=== PATIENT | female | born 1990 | race Caucasian/White ===

== ENCOUNTER → 2017-05-13 | Outpatient (CLI) | payer MEDICAID | LOC: LABWHC1 12:39 | PROVIDERS: ATTEND Internal Medicine Endocrinology, Diabetes & Metabolism | DX: E04.2 Nontoxic multinodular goiter (principal) | CPT/HCPCS: 36415; 84436; 84443; 84480 ==

== ENCOUNTER → 2017-06-06 | Outpatient (CLI) | payer MEDICAID | END | disposition home or self-care (01) | LOC: LABWHC1 12:35 | PROVIDERS: ATTEND Internal Medicine Endocrinology, Diabetes & Metabolism | DX: E04.1 Nontoxic single thyroid nodule (principal); R94.6 Abnormal results of thyroid function studies | CPT/HCPCS: 36415; 84439; 84443; 84445; 84481 ==

== ENCOUNTER → 2017-07-03 | Outpatient (CLI) | payer MEDICAID | END | disposition home or self-care (01) | LOC: LABWHC1 12:10 | PROVIDERS: ATTEND Internal Medicine Endocrinology, Diabetes & Metabolism | DX: E04.2 Nontoxic multinodular goiter (principal) | CPT/HCPCS: 36415; 84436; 84443; 84480 ==

== ENCOUNTER → 2017-07-17 | Outpatient (CLI) | payer MEDICAID | END | disposition home or self-care (01) | LOC: LABWHC1 10:22 | PROVIDERS: ATTEND Internal Medicine Endocrinology, Diabetes & Metabolism | DX: E04.2 Nontoxic multinodular goiter (principal) | CPT/HCPCS: 36415; 84436; 84443; 84480 ==

== ENCOUNTER 2017-11-06 06:30 | Inpatient (IN) | payer BC ==
[2017-11-06] MEDS ORDERED: LIDOCAINE 1% (PF) 10 MG/ML (30 ML SDV) SQ PRN (06:55)
[2017-11-06] MEDS ORDERED: TERBUTALINE 1 MG/ML VIAL SQ PRN (06:55)
[2017-11-06] MEDS ORDERED: METHYLERGONOVINE 0.2 MG/ML 1 ML AMP IM PRN (06:55)
[2017-11-06] MEDS ORDERED: OXYTOCIN 10 UNIT/ML 1 ML VIAL IM PRN (06:55)
[2017-11-06] MEDS ORDERED: CARBOPROST TROMETHAMINE 250 MCG/ML 1 ML AMP IM PRN (06:55)
[2017-11-06 07:15] LABS: Basophils % (A) 0 %; Eosinophils # (A) 0.1 k/uL (0-0.7); Eosinophils % (A) 1 %; HGB 13.1 gm/dL (11.4-16.0); Lymphocytes # (A) 2.2 k/uL (1.0-4.8); Lymphocytes % (A) 23 %; MCH 28.3 pg (25.0-35.0); MCHC 32.7 g/dL (31.0-37.0); MCV 86.4 fL (80.0-100.0); Mean Platelet Volume 8.1; Monocytes # (A) 0.6 k/uL (0-1.0); Monocytes % (A) 6 %; Neutrophils # (A) 6.4 k/uL (1.3-7.7); Neutrophils % (A) 66 %; Platelet Count 286 k/uL (150-450); RBC 4.63 m/uL (3.80-5.40); RDW 14.6 % (11.5-15.5); WBC 9.7 k/uL (3.8-10.6)
[2017-11-06 07:18] VITALS: BMI 35.7
[2017-11-06] MEDS: LACTATED RINGERS 1,000 ML IV SCH ×2 (07:20→14:23)
[2017-11-06] MEDS: OXYTOCIN 20 UNITS/1000 ML NS 1,000 ML IV SCH ×2 (07:35→21:20)
[2017-11-06] MEDS ORDERED: BUTORPHANOL 1 MG/ML 1 ML VIAL IV PRN (08:45)
--- NOTE | 2017-11-06 08:49 | P.HPOB ---
History of Present Illness H&P Date: 11/06/17 Chief Complaint: 40-0/7 weeks, induction of labor The patient is a 27-year-old 1 para 0 admitted at 40-0/7 weeks as established by last menstrual period and confirmed by a week ultrasound. She is admitted for induction of labor with favorable cervix and all signs reassuring. Her has been uncomplicated and group B strep status is negative. Obstetrical history: [place] 1 para 0 with current statistics listed above. EDC of 11/06/2017 was established by last menstrual period and confirmed by 8 week ultrasound. Laboratory workup demonstrates a blood type of A+ with a negative antibody screen. Rubella status is immune. The remainder of the laboratory workup is within normal limits. Early Glucola was within normal limits. Second trimester Glucola was elevated but followed with a normal three-hour glucose tolerance test. Group B strep status is negative. Gynecologic history: Unremarkable with no history of any infections to include STDs. Review of Systems Review of systems is confined to history of present illness. Past Medical History Past Medical History: Asthma Additional Past Medical History / Comment(s): ovarian cysts, enlarged thyroid History of Any Multi-Drug Resistant Organisms: None Reported Additional Past Surgical History / Comment(s): thyroid biopsy, wisdom teeth, 2 right axillary surguries (foreign body tissue) Past Psychological History: No Psychological Hx Reported Smoking Status: Never smoker Past Alcohol Use History: Occasional Past Drug Use History: None Reported - Past Family History Father Family Medical History: Congestive Heart Failure (CHF) Mother Family Medical History: Hyperlipidemia Additional Family Medical History / Comment(s): skin cancer Medications and Allergies Allergies Allergy/AdvReac Type Severity Reaction Status Date / Time Milk Containing Products Allergy Nausea & Verified 11/06/17 06:55 [Dairy] Vomiting & Diarrhea Exam - Vital Signs Vital signs: Vital Signs Temp Pulse Resp BP Pulse Ox 11/06/17 06:43 97.7 F 106 H 18 131/97 97 Intake and Output 11/05/17 11/06/17 11/06/17 22:59 06:59 14:59 Other: Weight 112.945 kg In general, this is a well-developed, well-nourished white female in no acute distress. Her heart has a regular rhythm and rate without murmur. Her lungs are clear to auscultation bilaterally in all blair. Her abdomen is gravid, nondistended, has normal active bowel sounds, is soft, nontender, and without any palpable masses aside from uterine fundus. Her extremities without any cyanosis, clubbing, or significant edema and are nontender to palpation bilaterally. Digital cervical examination demonstrates her cervix to be 2 cm dilated, 50% effaced, the vertex in presentation at -2 station. Artificial rupture of membranes is carried out demonstrating clear fluid. Results Result Diagrams: 11/06/17 07:02 Assessment and Plan (1) Term Current Visit: Yes Status: Acute Code(s): Z34.80 - ENCOUNTER FOR SUPRVSN OF NORMAL , UNSP TRIMESTER SNOMED Code(s): 02983181 Plan: The patient has been admitted for induction of labor. Pitocin augmentation has been started and artificial rupture membranes carried out. She will have close maternal and surveillance and expectant management will be practiced. She is a good candidate for either IV or epidural analgesia, whichever she may choose.
[2017-11-06] MEDS ORDERED: BUPIVACAINE (PF) 0.25% 30 ML VIAL ONE (16:29)
[2017-11-06] MEDS ORDERED: fentaNYL (PF) 50 MCG/ML 5 ML AMP ONE (16:29)
[2017-11-06] MEDS ORDERED: SODIUM CHLORIDE 0.9% 100 ML BAG ONE (16:29)
[2017-11-06] MEDS ORDERED: BUPIVACAINE (PF) 0.25% 25 ML, fentaNYL (PF) 200 MCG in SODIUM CHLORIDE 0.9% 71 ML EPIDURAL ONE (17:16)
[2017-11-06] MEDS ORDERED: WITCH HAZEL 1 EACH MED..PAD TOPICAL PRN (21:06)
[2017-11-06] MEDS ORDERED: diphenhydrAMINE 50 MG/ML 1 ML VIAL IVP PRN ×2 (21:06)
[2017-11-06] MEDS ORDERED: ACETAMINOPHEN TAB 325 MG TAB PO PRN (21:06)
[2017-11-06] MEDS ORDERED: diphenhydrAMINE 25 MG CAP PO PRN (21:06)
[2017-11-06] MEDS ORDERED: LANOLIN CREAM 5 GM TUBE TOPICAL PRN (21:06)
[2017-11-06] MEDS ORDERED: HYDROCORTISONE 2.5% RECTAL CREAM 30 GM TUBE RECTAL PRN (21:06)
[2017-11-06] MEDS ORDERED: SIMETHICONE 80 MG CHEWABLE PO PRN (21:06)
[2017-11-06] MEDS ORDERED: Acetaminophen-Codeine 300-30mg TAB PO PRN ×2 (21:06)
[2017-11-06] MEDS ORDERED: diphenhydrAMINE 50 MG CAP PO PRN (21:06)
[2017-11-06] MEDS ORDERED: BENZOCAINE/MENTHOL SPRAY 1 GM/SPRAY AEROSOL TOPICAL PRN (21:06)
[2017-11-06] MEDS ORDERED: ZOLPIDEM 5 MG TAB PO PRN (21:06)
--- NOTE | 2017-11-06 21:09 | P.PROBDLV ---
Vaginal Delivery Note - . Vaginal Delivery Note: The patient is a 27-year-old 1 para 0 admitted at 40-0/7 weeks by good dating parameters. She is admitted for induction of labor with a favorable cervix. On admission, all signs are reassuring. Her has been entirely uncomplicated and group B strep status is negative. On labor and delivery, she had Pitocin augmentation started and underwent artificial rupture of membranes demonstrating clear fluid. She made relatively slow progress through the latent phase of labor and had an epidural catheter placed for analgesia at the onset of the active phase of labor, approximate 4-5 cm of dilation. She then made fairly steady and regular progress through the active phase of labor to complete and then pushed over the course of approximately 40 minutes to a normal spontaneous vaginal delivery of a viable 7 lbs. 14 oz. baby girl with Apgars of 9 at 1 minute and 9 at 5 minutes delivered in the right occiput anterior position. The placenta was delivered spontaneously, intact, and grossly normal with a grossly normal three-vessel cord inserted approximately 5-6 cm from the margin of the placental disc. There was a second- degree midline perineal laceration noted which was repaired in standard fashion using 3-0 chromic catgut without complications. Estimated blood loss for the entire case was approximate 400 mL. There were no complications. All sponge, instrument, and needle counts were correct. Both mother and infant are resting comfortably in recovery.
[2017-11-06] MEDS ORDERED: OXYTOCIN 20 UNITS/1000 ML NS 1,000 ML IV SCH (21:15)
[2017-11-06] MEDS: IBUPROFEN 600 MG TAB PO PRN (21:20)
[2017-11-07] MEDS: LACTATED RINGERS 1,000 ML IV SCH (00:18)
[2017-11-07] MEDS: SENNOSIDES-DOCUSATE SODIUM 1 EACH TAB PO SCH ×2 (07:46→21:26)
[2017-11-07] MEDS: IBUPROFEN 600 MG TAB PO PRN ×3 (07:46→20:10)
--- NOTE | 2017-11-07 10:16 | P.PNOBGVD ---
Subjective - Subjective Patient reports: Reports appetite normal, Reports voiding normally, Reports pain well controlled, Reports ambulating normally : doing well Objective - Latest Vital Signs Latest vital signs: Vital Signs Temp Pulse Resp BP Pulse Ox 11/07/17 08:25 110 H 11/07/17 08:15 98 F 16 124/85 96 11/07/17 08:00 110 H 11/07/17 04:00 98.2 F 122 H 15 135/84 11/07/17 00:00 98.1 F 118 H 16 125/86 11/06/17 23:04 97.3 F L 127 H 17 136/69 97 11/06/17 22:34 123 H 16 137/79 11/06/17 22:04 131 H 18 131/71 11/06/17 21:49 133 H 16 139/75 11/06/17 21:34 137 H 17 131/67 11/06/17 21:19 127 H 17 137/72 11/06/17 21:04 98.2 F 134 H 18 131/66 97 Intake and Output 11/06/17 11/07/17 11/07/17 22:59 06:59 14:59 Intake Total 41.25 600 Balance 41.25 600 Intake: Intake, IV Titration 41.25 Amount Oxytocin 20 Units/1000 ml 41.25 Ns 1,000 ml @ 1 MILLIUNIT/MIN 3 mls/hr IV .Q24H [facility] Rx#:[id number] Oral 600 Other: Voiding Method Toilet # Voids 1 1 - Exam Lungs: bilateral: normal Chest: Normal S1, Normal S2 Extremities: Present: normal Abdomen: Present: normal appearance, soft Uterus: Present: normal, firm (The uterine fundus as tonic and nontender around the umbilicus.) Assessment and Plan (1) Term Current Visit: Yes Status: Acute Code(s): Z34.80 - ENCOUNTER FOR SUPRVSN OF NORMAL , UNSP TRIMESTER SNOMED Code(s): 55945377 (2) Normal spontaneous vaginal delivery Current Visit: Yes Status: Acute Code(s): O80 - ENCOUNTER FOR FULL-TERM UNCOMPLICATED DELIVERY SNOMED Code(s): 99891876 Plan: Continue routine care, anticipate discharge home tomorrow pending no complications.
[2017-11-08] MEDS: IBUPROFEN 600 MG TAB PO PRN (04:51)
[2017-11-08] MEDS: SENNOSIDES-DOCUSATE SODIUM 1 EACH TAB PO SCH (08:51)
--- NOTE | 2017-11-08 08:59 | P.DS ---
Providers Date of admission: 11/06/17 06:40 Expected date of discharge: 11/08/17 Attending physician: Ramiro Perez Primary care physician: Stated None - Discharge Diagnosis(es) (1) Term Current Visit: Yes Status: Acute (2) Normal spontaneous vaginal delivery Current Visit: Yes Status: Acute Hospital Course: The patient is a 27-year-old 1 para 0 admitted at 40-0/7 weeks by good dating parameters perches admitted for induction of labor with all signs reassuring having had an uncomplicated . Group B strep status is negative. On labor and delivery, she had Pitocin started followed by artificial rupture of membranes. She made relatively slow progress through the latent phase of labor and ultimately had a epidural placed at the onset of active phase of labor. She then made fairly rapid progress to complete and pushed over the course of approximate 40 minutes to a normal spontaneous vaginal delivery of a viable 7 lbs. 14 oz. baby girl with Apgars of 9 at 1 minute and 9 at 5 minutes. Her course was entirely unremarkable with vital signs remaining stable and her temperature was afebrile throughout. She was deemed stable for discharge on day #2 and was discharged home to follow-up in the office in 6 weeks' time routinely. Discharge instructions included calling for any significantly increased bleeding or foul- smelling lochia, significantly increased fever abdominal pain, perineal complaints, breast complaints, or anything else that concerned her. She was additionally instructed to have nothing in the vagina for at least 6 weeks time to include intercourse. She understood all of her instructions and agrees to follow up as noted above. Discharge medications included only continued vitamins and [id number]-[id number] analgesics as needed. Maternal blood type is A+ and rubella status is immune. Procedures: #1. Pitocin induction #2. Artificial rupture of membranes #3. Epidural analgesia #4. Normal spontaneous vaginal delivery #5. Repair of perineal laceration Patient Condition at Discharge: Good Plan - Discharge Summary Follow up Appointment(s)/Referral(s): Ramiro Perez MD [STAFF PHYSICIAN] - 6 Weeks Discharge Disposition: HOME SELF-CARE
[2017-11-08 10:24] VITALS: BP 140/82; PULSE 103; RESP 18; TEMP 97.1
== END 2017-11-08 12:40 | disposition home or self-care (01) | DRG 775 ==
LOC: 4FBP 06:40
PROVIDERS: ADMIT Obstetrics & Gynecology; ATTEND Obstetrics & Gynecology
PROC: 3E0R3NZ Introduction of Analgesics, Hypnotics, Sedatives into Spinal Canal, Percutaneous Approach (ICD-10-PCS; principal; 2017-11-06)
PROC: 0KQM0ZZ Repair Perineum Muscle, Open Approach (ICD-10-PCS; principal; 2017-11-06)
PROC: 10907ZC Drainage of Amniotic Fluid, Therapeutic from Products of Conception, Via Natural or Artificial Opening (ICD-10-PCS; principal; 2017-11-06)
PROC: 00HU33Z Insertion of Infusion Device into Spinal Canal, Percutaneous Approach (ICD-10-PCS; principal; 2017-11-06)
PROC: 10E0XZZ Delivery of Products of Conception, External Approach (ICD-10-PCS; principal; 2017-11-06)
PROC: 3E033VJ Introduction of Other Hormone into Peripheral Vein, Percutaneous Approach (ICD-10-PCS; principal; 2017-11-06)
DX: O48.0 Post-term pregnancy (principal); O70.1 Second degree perineal laceration during delivery; Z37.0 Single live birth; Z3A.40 40 weeks gestation of pregnancy; Z91.011 Allergy to milk products
CPT/HCPCS: 85025; 88307

== ENCOUNTER → 2018-07-18 | Outpatient (CLI) | payer BC ==
--- NOTE | 2018-07-18 15:45 | US ---
EXAMINATION TYPE: US thyroid st tissue head/neck DATE OF EXAM: 07/18/2018 COMPARISON: NONE CLINICAL HISTORY: E07.9 Enlarged Thyroid. Follow up nodules. Patient states having a bx= benign. GLAND SIZE: Right Lobe: 5.8 x 3.2 x 2.9 cm Overall Parenchyma: heterogenous Left Lobe: 5.1 x 2.4 x 1.7 cm Overall Parenchyma: heterogeneous Isthmus Thickness: 0.2 cm NODULES RIGHT: # of nodules measured on right: 2 1. 4.3 X 2.9 x 2.4 cm mixed nodule at the mid pole with well-defined margins. This nodule is wider than tall and shows intranodular vascularity. Prior size: 4.2 x 3.2 x 2.4 cm 2. 1.5 X 1.2 x 1.2 cm mixed nodule at the lower pole with well-defined margins. This nodule is wide r than tall and shows intranodular vascularity. Prior size: 1.6 x 1.4 x 1.2 cm LEFT: # of nodules measured on left: 4 1. 2.7 X 2.2 x 1.2 cm hypoechoic solid nodule at the mid pole with well-defined margins; interrupte d peripheral calcification. This nodule is wider than tall and shows intranodular vascularity. Prior size: 2.7 x 1.2 x 1.3 cm 2. 1.0 X 0.8 x 0.6 cm mixed nodule at the mid pole with well-defined margins. This nodule is taller than wide and shows intranodular vascularity. Prior size: 1.0 x 0.6 x 1.0 cm 3. 1.1 X 1.1 x 0.5 cm hypoechoic solid nodule at the upper pole with well-defined margins. This nod ule is wider than tall and shows intranodular vascularity. Prior size: 0.9 x 0.8 x 0.5 cm 4. 1.7 X 0.9 x 0.6 cm hypoechoic solid nodule at the mid pole with well-defined margins. This nodul e is wider than tall and shows intranodular vascularity. Prior size: No previous ISTHMUS: # of nodules measured in the isthmus: 0 Bilateral neck scanned, no evidence of lymphadenopathy. Bilateral enlarged thyroid lobes. IMPRESSION: Similar size of numerous bilateral thyroid nodules in an enlarged and heterogenous thyroid gland comp atible with a multinodular goiter.
== END ==
LOC: RADUSWWP 14:03
PROVIDERS: ATTEND Family Medicine
DX: E04.9 Nontoxic goiter, unspecified (principal)
CPT/HCPCS: 76536

== ENCOUNTER 2019-03-15 17:05 | Emergency (ER) | payer BC, OTHER ==
[2019-03-15 17:51] VITALS: BP 124/86; PULSE 94; RESP 18; TEMP 98.6
[2019-03-15 19:48] LABS: Basophils # (A) 0.1 k/uL (0-0.2); Basophils % (A) 1 %; Eosinophils # (A) 0.2 k/uL (0-0.7); Eosinophils % (A) 2 %; HCT 44.4 % (34.0-46.0); HGB 14.8 gm/dL (11.4-16.0); Lymphocytes # (A) 3.2 k/uL (1.0-4.8); Lymphocytes % (A) 37 %; MCH 28.8 pg (25.0-35.0); MCHC 33.3 g/dL (31.0-37.0); MCV 86.4 fL (80.0-100.0); Mean Platelet Volume 7.1; Monocytes # (A) 0.7 k/uL (0-1.0); Monocytes % (A) 7 %; Neutrophils # (A) 4.3 k/uL (1.3-7.7); Neutrophils % (A) 50 %; Platelet Count 356 k/uL (150-450); RBC 5.14 m/uL (3.80-5.40); RDW 12.9 % (11.5-15.5); WBC 8.7 k/uL (3.8-10.6)
[2019-03-15 19:55] LABS: ALT 19 U/L (9-52); AST 20 U/L (14-36); Alkaline Phosphatase 57 U/L (38-126)
[2019-03-15] MEDS ORDERED: EMTRICITABINE/TENOFOVIR (TDF) 1 EACH, RALTEGRAVIR POTASSIUM 400 MG PO ONE ×2 (20:12)
[2019-03-15 20:13] LABS: HCG,Quantitative Serum <2.4 mIU/mL
--- NOTE | 2019-03-15 20:43 | ED ---
General Adult HPI - General Chief complaint: Needlestick/Exposure Stated complaint: Needle stick-[facility] Time Seen by Provider: 03/15/19 18:12 Source: patient Mode of arrival: ambulatory Limitations: no limitations - History of Present Illness Initial comments: Patient is a 28-year-old female presenting to the emergency Department after accidental needlestick to the left thumb. 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 Patient reports no bleeding of the thumb. No it other injuries or concerns at this time. Patient denies any pain. - Related Data Previous Rx's Medication Instructions Recorded Emtricitabine/Tenofovir (Tdf) 1 tab PO DAILY 27 Days #27 tab 03/15/19 [Truvada 200 mg-300 mg Tablet] Raltegravir Potassium [Isentress] 400 mg PO Q12H 27 Days #54 tab 03/15/19 Allergies Allergy/AdvReac Type Severity Reaction Status Date / Time Milk Containing Products Allergy Nausea & Verified 11/06/17 06:55 [Dairy] Vomiting & Diarrhea Review of Systems ROS Statement: Those systems with pertinent positive or pertinent negative responses have been documented in the HPI. ROS Other: All systems not noted in ROS Statement are negative. Past Medical History Past Medical History: Asthma Additional Past Medical History / Comment(s): ovarian cysts, enlarged thyroid History of Any Multi-Drug Resistant Organisms: None Reported Additional Past Surgical History / Comment(s): thyroid biopsy, wisdom teeth, 2 right axillary surguries (foreign body tissue) Past Psychological History: No Psychological Hx Reported Smoking Status: Never smoker Past Alcohol Use History: Occasional Past Drug Use History: None Reported - Past Family History Father Family Medical History: Congestive Heart Failure (CHF) Mother Family Medical History: Hyperlipidemia Additional Family Medical History / Comment(s): skin cancer General Exam - General Exam Comments Initial Comments: GENERAL: Well-appearing, well-nourished and in no acute distress. HEAD: Atraumatic, normocephalic. EYES: Pupils equal round and reactive to light, extraocular movements intact, sclera anicteric, conjunctiva are normal. ENT: TMs normal, nares patent, oropharynx clear without exudates. Moist mucous membranes. NECK: Normal range of motion, supple without lymphadenopathy or JVD. LUNGS: Breath sounds clear to auscultation bilaterally and equal. No wheezes rales or rhonchi. HEART: Regular rate and rhythm without murmurs, rubs or gallops. ABDOMEN: Soft, nontender, normoactive bowel sounds. No guarding, no rebound. No masses appreciated. : Deferred EXTREMITIES: Patient has very small, pinpoint site of where the needle went in on the left thumb La aspect. No erythema or skin edema of the area. NEUROLOGICAL: Cranial nerves II through XII grossly intact. Normal speech, normal gait. PSYCH: Normal mood, normal affect. SKIN: Warm, Dry, normal turgor, no rashes or lesions noted. Limitations: no limitations Course Vital Signs 03/15/19 17:48 Temperature 98.6 F Pulse Rate 94 Respiratory 18 Rate Blood Pressure 124/86 O2 Sat by Pulse 98 Oximetry Medical Decision Making - Medical Decision Making Patient is a 28-year-old female who came to the ER after an accidental needle stick at work today. 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 Exam reveals no erythema or edema of the thumb. Needle stick protocol was followed. Basic lab work was drawn. They were unable to contact the patie nt that was receiving the injections. Patient is wanting to start HIV prophylactic. Proper labs were drawn before starting medication. They will continue to try to contact the patient so they can obtain his lab work. Patient will follow up with PCP as soon as possible. Patient will be discharged home. - Lab Data Result diagrams: 03/15/19 19:40 03/15/19 19:40 Lab Results 03/15/19 03/15/19 Range/Units 19:40 19:40 WBC 8.7 (3.8-10.6) k/uL RBC 5.14 (3.80-5.40) m/uL Hgb 14.8 (11.4-16.0) gm/dL Hct 44.4 (34.0-46.0) % MCV 86.4 (80.0-100.0) fL MCH 28.8 (25.0-35.0) pg MCHC 33.3 (31.0-37.0) g/dL RDW 12.9 (11.5-15.5) % Plt Count 356 (150-450) k/uL Neutrophils % 50 % Lymphocytes % 37 % Monocytes % 7 % Eosinophils % 2 % Basophils % 1 % Neutrophils # 4.3 (1.3-7.7) k/uL Lymphocytes # 3.2 (1.0-4.8) k/uL Monocytes # 0.7 (0-1.0) k/uL Eosinophils # 0.2 (0-0.7) k/uL Basophils # 0.1 (0-0.2) k/uL Creatinine 0.65 (0.52-1.04) mg/dL Est GFR (CKD-EPI)AfAm >90 (>60 ml/min/1.73 sqM) Est GFR (CKD-EPI)NonAf >90 (>60 ml/min/1.73 sqM) AST 20 (14-36) U/L ALT 19 (9-52) U/L Alkaline Phosphatase 57 (38-126) U/L HCG, Quant <2.4 mIU/mL Disposition Clinical Impression: Needle stick injury of finger of left hand Disposition: HOME SELF-CARE Condition: Stable Instructions (If sedation given, give patient instructions): Needle Stick Injuries (ED) Additional Instructions: Please return to the Emergency Department if symptoms worsen or any other concerns. Prescriptions: Raltegravir Potassium [Isentress] 400 mg PO Q12H 27 Days #54 tab Emtricitabine/Tenofovir (Tdf) [Truvada 200 mg-300 mg Tablet] 1 tab PO DAILY 27 Days #27 tab Is patient prescribed a controlled substance at d/c from ED?: No Referrals: Jesse Reed MD [Primary Care Provider] - 1-2 days
== END 2019-03-15 21:00 | disposition home or self-care (01) ==
LOC: EC 17:05
DX: S61.032A Puncture wound without foreign body of left thumb without damage to nail, initial encounter (principal); Z91.011 Allergy to milk products; W46.0XXA Contact with hypodermic needle, initial encounter; Y92.69 Other specified industrial and construction area as the place of occurrence of the external cause; Y99.0 Civilian activity done for income or pay
CPT/HCPCS: 36415; 82565; 84075; 84450; 84460; 84702; 85025; 99283

== ENCOUNTER → 2019-04-23 | Outpatient (CLI) | payer BC ==
[2019-04-23 18:01] LABS: Thyroid Peroxidase Antibodies 171.3 U/mL (0.0-60.0)
[2019-04-23 18:05] LABS: T4, Free (Free Thyroxine) 0.9 ng/dL (0.80-1.80)
[2019-04-23 18:37] LABS: Thyroglobulin 1.62 ng/mL (1.60-59.90)
== END | disposition home or self-care (01) ==
LOC: LABWHC1 09:37
PROVIDERS: ATTEND Physician Assistant
DX: E06.3 Autoimmune thyroiditis (principal); Z33.1 Pregnant state, incidental
CPT/HCPCS: 36415; 84432; 84439; 84443; 84481; 86376

== ENCOUNTER → 2019-05-20 | Outpatient (CLI) | payer BC ==
--- NOTE | 2019-05-20 15:07 | US ---
EXAMINATION TYPE: Transabdominal DATE OF EXAM: 05/20/2019 2:37 PM COMPARISON: NONE CLINICAL HISTORY: O76 ABSENT HEART TONES. EXAM PERFORMED: Transabdominal (TA) EXAM MEASUREMENTS: GESTATIONAL AGE / DATING Physician Established: Not yet established Dates by LMP: (11weeks/0 days) EDC: 03/04/2020 Dates by First Scan: not available Dates by Current Scan for: (10weeks/ 3days) EDC: 03/04/2020 MATERNAL ANATOMY Uterus: 10.2 x 8.5 x 8.6cm Right Ovary: 3.7 x 2.0 x 2.1cm Left Ovary: 2.8 x 1.6 x 1.9cm Post CDS / Adnexa: wnl Presence of free fluid: no Presence of subchorionic bleed: no GESTATION / SURVEY CRL: 3.3cm (10 weeks/2 days) Yolk Sac (normal less than 6mm): not seen Heart Rate: 179 bpm Rhythm: Normal IUP: Viable IUP Date of LMP: 03/04/19 Beta HcG (if available): not available IMPRESSION: Single viable intrauterine .
== END | disposition home or self-care (01) ==
LOC: RADUSWWP 14:09
PROVIDERS: ATTEND Obstetrics & Gynecology
DX: O76 Abnormality in fetal heart rate and rhythm complicating labor and delivery (principal)
CPT/HCPCS: 76801

== ENCOUNTER → 2019-06-14 | Outpatient (CLI) | payer BC ==
[2019-06-14 10:27] LABS: HCT 40.3 % (34.0-46.0); HGB 13.4 gm/dL (11.4-16.0); MCH 29.7 pg (25.0-35.0); MCHC 33.3 g/dL (31.0-37.0); MCV 89.4 fL (80.0-100.0); Mean Platelet Volume 8.1; Platelet Count 291 k/uL (150-450); RBC 4.51 m/uL (3.80-5.40); RDW 14.1 % (11.5-15.5)
[2019-06-14 12:18] LABS: T4, Free (Free Thyroxine) 0.8 ng/dL (0.80-1.80)
[2019-06-14 14:30] LABS: Hemoglobin A1C 5.2 % (4.0-6.0)
[2019-06-14 15:08] LABS: HIV 1 AB Non-Reactive (Non-Reactive); HIV AB P24 Non-Reactive (Non-Reactive); HIV P24 AG Non-Reactive (Non-Reactive)
== END | disposition home or self-care (01) ==
LOC: LABWHC1 06:59
PROVIDERS: ATTEND Obstetrics & Gynecology
DX: Z34.90 Encounter for supervision of normal pregnancy, unspecified, unspecified trimester (principal); E06.3 Autoimmune thyroiditis
CPT/HCPCS: 36415; 82950; 83036; 84439; 84443; 84481; 85027; 86762; 86780; 86850; 86900; 86901; 87340; 87390

== ENCOUNTER → 2019-10-07 | Outpatient (CLI) | payer BC ==
[2019-10-07 13:58] LABS: HCT 38.4 % (34.0-46.0); HGB 12.6 gm/dL (11.4-16.0); MCH 29.2 pg (25.0-35.0); MCHC 32.9 g/dL (31.0-37.0); MCV 88.7 fL (80.0-100.0); Mean Platelet Volume 7.2; Platelet Count 329 k/uL (150-450); RBC 4.33 m/uL (3.80-5.40); RDW 12.6 % (11.5-15.5); WBC 11.6 k/uL (3.8-10.6)
[2019-10-07 14:15] LABS: Appearance,Urine Clear (Clear); Bacteria,Urine Occasional /hpf; Bilirubin,Urine Negative (Negative); Blood,Urine Small (Negative); Calcium Oxalate Crystals,Urine Occasional /hpf; Color,Urine Yellow; Glucose,Urine (UA) Trace (Negative); Ketones,Urine Trace (Negative); Leukocyte Esterase,Urine Trace (Negative); Mucus,Urine Many /hpf; Nitrite,Urine Negative (Negative); Protein,Urine Trace (Negative); RBC,Urine 17 /hpf (0-5); Specific Gravity,Urine 1.022 (1.001-1.035); Squamous Epithelial Cell,Urine 2 /hpf (0-4); Urobilinogen,Urine <2.0 mg/dL (<2.0); WBC,Urine 4 /hpf (0-5)
[2019-10-07 20:09] LABS: ALT 10 U/L (8-44); AST 13 U/L (13-35); African American GFR (CKD) 150.5 (60.0-200.0); Albumin/Globulin Ratio 1.91 (1.60-3.17); Alkaline Phosphatase 76 U/L (41-126); Calcium 9.4 mg/dL (8.7-10.3); Carbon Dioxide 24.7 mmol/L (21.6-31.8); Chloride 105 mmol/L (96-109); Globulin 2.2 g/dL (1.6-3.3); Glucose 98 mg/dL (70-110); Non-African American GFR(CKD) 129.9 (60.0-200.0); Potassium 3.8 mmol/L (3.5-5.5); Sodium 138 mmol/L (135-145); Total Bilirubin 0.4 mg/dL (0.2-1.2); Total Protein 6.4 g/dL (6.2-8.2)
== END | disposition home or self-care (01) ==
LOC: LABWHC1 12:45
PROVIDERS: ATTEND Physician Assistant
DX: O26.90 Pregnancy related conditions, unspecified, unspecified trimester (principal); R00.0 Tachycardia, unspecified; I10 Essential (primary) hypertension
CPT/HCPCS: 36415; 80053; 81001; 84439; 84443; 84481; 85027; 85379

== ENCOUNTER → 2019-11-15 | Outpatient (CLI) | payer MEDICAID, BC | END | disposition home or self-care (01) | LOC: PEDOP 13:10 | PROVIDERS: ATTEND Family Medicine | DX: R05 Cough (principal) | CPT/HCPCS: 87081; 87430; 99212 ==

== ENCOUNTER 2019-12-09 06:14 | Inpatient (IN) | payer BC, MEDICAID ==
[2019-12-09] MEDS ORDERED: LIDOCAINE 0.5% (PF) 5 MG/ML (50 ML SDV) SQ PRN (06:25)
[2019-12-09] MEDS ORDERED: TERBUTALINE 1 MG/ML VIAL SQ PRN (06:25)
[2019-12-09] MEDS ORDERED: CARBOPROST TROMETHAMINE 250 MCG/ML 1 ML AMP IM PRN (06:25)
[2019-12-09] MEDS ORDERED: METHYLERGONOVINE 0.2 MG/ML 1 ML AMP IM PRN (06:25)
[2019-12-09] MEDS ORDERED: OXYTOCIN 10 UNIT/ML 1 ML VIAL IM PRN (06:25)
[2019-12-09] MEDS ORDERED: OXYTOCIN 30 UNITS/500 ML NS 30 UNIT in SALINE 1 500ML.BAG IV SCH (06:30)
[2019-12-09] MEDS: LACTATED RINGERS 1,000 ML IV SCH ×2 (06:51→11:36)
[2019-12-09 06:56] LABS: Basophils % (A) 0 %; Eosinophils # (A) 0.1 k/uL (0-0.7); Eosinophils % (A) 2 %; HCT 40.3 % (34.0-46.0); HGB 13.2 gm/dL (11.4-16.0); Lymphocytes # (A) 2.1 k/uL (1.0-4.8); Lymphocytes % (A) 28 %; MCH 28.5 pg (25.0-35.0); MCHC 32.7 g/dL (31.0-37.0); MCV 87.3 fL (80.0-100.0); Mean Platelet Volume 9.1; Monocytes # (A) 0.4 k/uL (0-1.0); Monocytes % (A) 6 %; Neutrophils # (A) 4.8 k/uL (1.3-7.7); Neutrophils % (A) 62 %; Platelet Count 255 k/uL (150-450); RBC 4.61 m/uL (3.80-5.40); RDW 13.3 % (11.5-15.5); WBC 7.7 k/uL (3.8-10.6)
[2019-12-09] MEDS ORDERED: BUTORPHANOL 1 MG/ML 1 ML VIAL IV PRN (08:50)
--- NOTE | 2019-12-09 08:54 | P.HPOB ---
History of Present Illness H&P Date: 12/09/19 Chief Complaint: 40-0/7 weeks, induction The patient is a 29-year-old 2 para 1001 admitted at 40-0/7 weeks as established by last menstrual period and confirmed by 8 week ultrasound. She is admitted with all signs reassuring and an uncomplicated for essent ially elective induction. Group B strep status is negative. Obstetrical history: 2 para 1001 with 1 term vaginal delivery without complications. Current statistics are listed in history of present illness. EDC of 12/09/2019 was established by last menstrual period and confirmed by 8 week ultrasound. Laboratory workup demonstrates a blood type of A+ with a negative antibody screen. Rubella status is immune. The remainder of the laboratory workup was within normal limits. Early Glucola was elevated with a normal three-hour glucose tolerance test. Subsequent second trimester Glucola was within normal limits. Group B strep status is negative. [place] history: Unremarkable with no history of any infections to include STDs. Review of Systems Review of systems is confined to history of present illness. Past Medical History Past Medical History: Asthma, Thyroid Disorder Additional Past Medical History / Comment(s): ovarian cysts, enlarged thyroid, hyperthyroid History of Any Multi-Drug Resistant Organisms: None Reported Additional Past Surgical History / Comment(s): thyroid biopsy, wisdom teeth, 2 right axillary surguries (foreign body tissue) Past Anesthesia/Blood Transfusion Reactions: Postoperative Nausea & Vomiting (PONV) Past Psychological History: No Psychological Hx Reported Smoking Status: Never smoker Past Alcohol Use History: None Reported Past Drug Use History: None Reported - Past Family History Father Family Medical History: Congestive Heart Failure (CHF) Mother Family Medical History: Hyperlipidemia Additional Family Medical History / Comment(s): skin cancer Medications and Allergies Home Medications Medication Instructions Recorded Confirmed Type Cephalexin [Keflex] 500 mg PO Q8HR 12/09/19 12/09/19 History Pnv No.95/Ferrous Fum/Folic AC 1 each PO DAILY 12/09/19 12/09/19 History [ Multivitamin Tablet] Allergies Allergy/AdvReac Type Severity Reaction Status Date / Time varicella virus vaccine live AdvReac Swelling Verified 12/09/19 06:25 Exam Vital Signs Temp Pulse Resp BP Pulse Ox 12/09/19 06:30 97.9 F 118 H 18 133/86 97 Intake and Output 12/08/19 12/09/19 12/09/19 22:59 06:59 14:59 Other: Weight 115.666 kg In general, this is a well-developed, well-nourished white female in no acute distress. Her heart has a regular rhythm and rate without murmur. Her lungs are clear to auscultation bilaterally in all blair. Her abdomen is gravid, has normal active bowel sounds, is soft, nontender, and without any palpable masses aside from uterine fundus. Her extremities are without any cyanosis, clubbing, or significant edema and are nontender to palpation bilaterally. Digital cervical examination demonstrates her cervix to be 3 cm dilated, 60% effaced, the vertex in presentation at -2 station. Artificial rupture of membranes is carried out demonstrating clear fluid. Results Result Diagrams: 12/09/19 06:45 Assessment and Plan (1) Term Current Visit: Yes Status: Acute Code(s): Z34.80 - ENCOUNTER FOR SUPRVSN OF NORMAL , UNSP TRIMESTER SNOMED Code(s): 75290205 Plan: The patient is admitted for essentially elective induction of labor with a favorable cervix and all signs reassuring. She understands the risks and complications of elective induction including the slightly increased risk for delivery. Pitocin augmentation has been started and artificial rupture of membranes carried out. She will continue to have close maternal and surveillance and expectant management will be practiced. She is a good candidate for either IV or epidural analgesia, whichever she may choose.
[2019-12-09] MEDS ORDERED: WITCH HAZEL 1 EACH MED..PAD TOPICAL PRN (14:42)
[2019-12-09] MEDS ORDERED: diphenhydrAMINE 50 MG/ML 1 ML VIAL IVP PRN ×2 (14:42)
[2019-12-09] MEDS ORDERED: BENZOCAINE/MENTHOL SPRAY 1 GM/SPRAY AEROSOL TOPICAL PRN (14:42)
[2019-12-09] MEDS ORDERED: HYDROCORTISONE 2.5% RECTAL CREAM 30 GM TUBE RECTAL PRN (14:42)
[2019-12-09] MEDS ORDERED: HYDROcodone/APAP 7.5-325MG 1 EACH TAB PO PRN (14:42)
[2019-12-09] MEDS ORDERED: LANOLIN CREAM 5 GM TUBE TOPICAL PRN (14:42)
[2019-12-09] MEDS ORDERED: ACETAMINOPHEN TAB 325 MG TAB PO PRN (14:42)
[2019-12-09] MEDS ORDERED: ZOLPIDEM 5 MG TAB PO PRN (14:42)
[2019-12-09] MEDS ORDERED: HYDROcodone/APAP 5-325MG 1 EACH TAB PO PRN (14:42)
[2019-12-09] MEDS ORDERED: diphenhydrAMINE 25 MG CAP PO PRN (14:42)
[2019-12-09] MEDS ORDERED: diphenhydrAMINE 50 MG CAP PO PRN (14:42)
[2019-12-09] MEDS ORDERED: SIMETHICONE 80 MG CHEWABLE PO PRN (14:42)
[2019-12-09] MEDS ORDERED: OXYTOCIN 20 UNITS/1000 ML NS 1,000 ML IV SCH (14:45)
--- NOTE | 2019-12-09 14:47 | P.PROBDLV ---
Vaginal Delivery Note - . Vaginal Delivery Note: The patient is a 29-year-old 2 para 1001 admitted at 40-0/7 weeks by good dating parameters. She is admitted with all signs reassuring for an elective induction of labor. Her has been uncomplicated and group B strep status is negative. On labor and delivery, she had Pitocin started followed by artificial rupture of membranes for clear fluid. She made progress to the active phase of labor which time she had an epidural placed for analgesia. She made fairly rapid progress thereafter to complete and +2 station. She pushed over the course of 3 contractions to a normal spontaneous vaginal delivery of a viable 9 lbs. 4 oz. baby girl with Apgars of 9 at 1 minute and 10 at 5 minutes delivered in the direct occiput anterior position. There was a loose nuchal cord 1 which was reduced prior to delivery of the infant. Remainder of the was then delivered in the cord doubly clamped and cut and the passed for resuscitative measures with weight and Apgars as noted above. The placenta was delivered spontaneously, intact, and grossly normal with a grossly normal, centrally inserted three-vessel cord. A small second- degree midline perineal episiotomy had been cut as it was clearly going tear in the site of a previous laceration repair and the patient was in significant distress. There was no significant extension and the episiotomy was repaired in standard fashion using 3-0 chromic catgut without difficulty. Estimated blood loss for the case is approximately 350 mL. There were no complications. All sponge, instrument, and needle counts were correct. Both mother and are resting comfortably in recovery.
[2019-12-09] MEDS: IBUPROFEN 600 MG TAB PO PRN (19:08)
[2019-12-09] MEDS: SENNOSIDES-DOCUSATE SODIUM 1 EACH TAB PO SCH (21:07)
[2019-12-10] MEDS: LACTATED RINGERS 1,000 ML IV SCH (00:10)
[2019-12-10] MEDS: IBUPROFEN 600 MG TAB PO PRN ×2 (05:38→12:08)
[2019-12-10 08:33] VITALS: BP 131/84; PULSE 96; RESP 16; TEMP 97.6
--- NOTE | 2019-12-10 09:43 | P.DS ---
Providers Date of admission: 12/09/19 06:14 Expected date of discharge: 12/10/19 Attending physician: Ramiro Perez Primary care physician: Jesse Reed - Discharge Diagnosis(es) (1) Term Current Visit: Yes Status: Acute (2) Normal spontaneous vaginal delivery Current Visit: Yes Status: Acute Hospital Course: The patient is a 29-year-old 2 para 1001 admitted at 40-0/7 weeks by good dating parameters perches admitted with all signs reassuring after incompetent for elective induction of labor. Group B strep status is negative. On labor and delivery, she had Pitocin started followed by artificial rupture of membranes demonstrating clear fluid. She made progress to the active phase at which time she had an epidural catheter placed for analgesia. She then progressed to complete and pushed fairly quickly to a normal spontaneous vaginal delivery of a viable 9 lbs. 4 oz. baby girl with Apgars of 9 at 1 minute and 10 at 5 minutes. Her course was unremarkable vital signs remaining stable and her temperature was afebrile throughout. She was deemed stable for discharge on day #1 was discharged home to follow-up in the office in 6 weeks' time routinely. Discharge instructions included calling for any significantly increased bleeding or foul-smelling lochia, significantly increased fever or abdominal pain, perineal complaints, breast complaints, or anything else that concerned her. She is additionally instructed to have nothing in vagina for at least 6 weeks time to include intercourse. She understood her instructions and agrees to follow up as noted above. Discharge medications included continued vitamins as she has opted to breast- feed. She was otherwise to use [id number] analgesic pain medications as needed. Maternal blood type is A+ and rubella status is immune. Procedures: #1. Pitocin induction #2. Artificial rupture of membranes #3. Epidural analgesia #4. Normal spontaneous vaginal delivery #5. Second degree midline episiotomy and repair Patient Condition at Discharge: Good Plan - Discharge Summary New Discharge Prescriptions: No Action Pnv No.95/Ferrous Fum/Folic AC [ Multivitamin Tablet] 1 each PO DAILY Cephalexin [Keflex] 500 mg PO Q8HR Discharge Medication List Cephalexin [Keflex] 500 mg PO Q8HR 12/09/19 [History] Pnv No.95/Ferrous Fum/Folic AC [ Multivitamin Tablet] 1 each PO DAILY 12/09/19 [History] Follow up Appointment(s)/Referral(s): Ramiro Perez MD [STAFF PHYSICIAN] - 6 Weeks Discharge Disposition: HOME SELF-CARE
[2019-12-10] MEDS: SENNOSIDES-DOCUSATE SODIUM 1 EACH TAB PO SCH (10:27)
[2019-12-10] MEDS ORDERED: fentaNYL (PF) 50 MCG/ML 5 ML AMP ONE (11:04)
[2019-12-10] MEDS ORDERED: SODIUM CHLORIDE 0.9% 100 ML BAG ONE (11:04)
[2019-12-10] MEDS ORDERED: ROPIVACAINE 5MG/ML 20ML VIAL ONE (11:04)
== END 2019-12-10 16:14 | disposition home or self-care (01) | DRG 807 ==
LOC: 4FBP 06:14
PROVIDERS: ADMIT Obstetrics & Gynecology; ATTEND Obstetrics & Gynecology
PROC: 3E033VJ Introduction of Other Hormone into Peripheral Vein, Percutaneous Approach (ICD-10-PCS; principal; 2019-12-09)
PROC: 3E0R3BZ Introduction of Anesthetic Agent into Spinal Canal, Percutaneous Approach (ICD-10-PCS; principal; 2019-12-09)
PROC: 00HU33Z Insertion of Infusion Device into Spinal Canal, Percutaneous Approach (ICD-10-PCS; principal; 2019-12-09)
PROC: 10907ZC Drainage of Amniotic Fluid, Therapeutic from Products of Conception, Via Natural or Artificial Opening (ICD-10-PCS; principal; 2019-12-09)
PROC: 0W8NXZZ Division of Female Perineum, External Approach (ICD-10-PCS; principal; 2019-12-09)
PROC: 10E0XZZ Delivery of Products of Conception, External Approach (ICD-10-PCS; principal; 2019-12-09)
DX: O69.81X0 Labor and delivery complicated by cord around neck, without compression, not applicable or unspecified (principal); Z37.0 Single live birth; O99.284 Endocrine, nutritional and metabolic diseases complicating childbirth; E05.00 Thyrotoxicosis with diffuse goiter without thyrotoxic crisis or storm; O34.80 Maternal care for other abnormalities of pelvic organs, unspecified trimester; N83.209 Unspecified ovarian cyst, unspecified side; Z3A.40 40 weeks gestation of pregnancy; Z87.09 Personal history of other diseases of the respiratory system; Z88.7 Allergy status to serum and vaccine; Z80.8 Family history of malignant neoplasm of other organs or systems; Z82.49 Family history of ischemic heart disease and other diseases of the circulatory system
CPT/HCPCS: 85025; 86850; 86900; 86901

== ENCOUNTER → 2020-08-31 | Outpatient (CLI) | payer MEDICAID, BC | END | disposition home or self-care (01) | LOC: LABWHC1 09:08 | PROVIDERS: ATTEND Surgery Surgical Critical Care | DX: E05.00 Thyrotoxicosis with diffuse goiter without thyrotoxic crisis or storm (principal) | CPT/HCPCS: 36415; 83970 ==

== ENCOUNTER → 2020-10-14 | Outpatient (CLI) | payer MEDICAID, BC | END | disposition home or self-care (01) | LOC: LABWHC1 07:25 | PROVIDERS: ATTEND Surgery Surgical Critical Care | DX: E05.90 Thyrotoxicosis, unspecified without thyrotoxic crisis or storm (principal) | CPT/HCPCS: 36415; 84443 ==

== ENCOUNTER → 2022-02-17 | Outpatient (CLI) | payer BC ==
[2022-02-17 17:45] LABS: HCT 44.9 % (37.2-46.3); HGB 14.6 g/dL (12.0-15.0); MCH 29.7 pg (27.0-32.0); MCHC 32.5 g/dL (32.0-37.0); MCV 91.3 fL (80.0-97.0); Mean Platelet Volume 11.2 fL (9.5-12.2); NRBC Per 100 WBC 0 /100 WBCS (0.0-0.0); Platelet Count 327 X 10*3/uL (140-440); RBC 4.92 X 10*6/uL (4.10-5.20); RDW 12.6 % (11.5-14.5); WBC 8.77 X 10*3/uL (4.50-10.00)
[2022-02-17 18:04] LABS: ALT 13 U/L (8-44); AST 16 U/L (13-35); African American GFR (CKD) 133.7 (60.0-200.0); Albumin 4.8 g/dL (3.8-4.9); Alkaline Phosphatase 45 U/L (41-126); Blood Urea Nitrogen 12.3 mg/dL (9.0-27.0); Calcium 9.5 mg/dL (8.7-10.3); Carbon Dioxide 20.1 mmol/L (20.0-27.5); Chloride 103 mmol/L (96-109); Chol/HDL Ratio 6.24 Ratio; Glucose 87 mg/dL (70-110); LDL Cholesterol,Calculated 145.8 mg/dL (0.0-131.0); Non-African American GFR(CKD) 115.4 (60.0-200.0); Potassium 3.9 mmol/L (3.5-5.5); Sodium 137 mmol/L (135-145); Total Bilirubin <0.15 mg/dL (0.30-1.20); Total Protein 7.8 g/dL (6.2-8.2)
== END | disposition home or self-care (01) ==
LOC: LABWHC1 12:24
PROVIDERS: ATTEND Physician Assistant Medical
DX: Z51.81 Encounter for therapeutic drug level monitoring (principal); E03.9 Hypothyroidism, unspecified
CPT/HCPCS: 36415; 80053; 80061; 83036; 84436; 84443; 84481; 85027

== ENCOUNTER → 2022-06-20 | Outpatient (CLI) | payer BC ==
[2022-06-20 14:40] LABS: HCT 42.9 % (37.2-46.3); HGB 14.2 g/dL (12.0-15.0); MCHC 33.1 g/dL (32.0-37.0); MCV 90.5 fL (80.0-97.0); Mean Platelet Volume 11.2 fL (9.5-12.2); NRBC Per 100 WBC 0 /100 WBCS (0.0-0.0); Platelet Count 304 X 10*3/uL (140-440); RBC 4.74 X 10*6/uL (4.10-5.20); RDW 12.7 % (11.5-14.5); WBC 6.59 X 10*3/uL (4.50-10.00)
[2022-06-20 15:33] LABS: African American GFR (CKD) 139.8 (60.0-200.0); Albumin 4.8 g/dL (3.8-4.9); Albumin/Globulin Ratio 1.71 (1.60-3.17); Anion Gap 12.5 mmol/L (10.00-18.00); BUN/Creat Ratio 18.17 Ratio (12.00-20.00); Blood Urea Nitrogen 10.9 mg/dL (9.0-27.0); Calcium 9.7 mg/dL (8.7-10.3); Carbon Dioxide 25.5 mmol/L (20.0-27.5); Globulin 2.8 g/dL (1.6-3.3); Non-African American GFR(CKD) 120.6 (60.0-200.0); Potassium 4.3 mmol/L (3.5-5.5); Total Bilirubin 0.3 mg/dL (0.30-1.20); Total Protein 7.6 g/dL (6.2-8.2)
[2022-06-20 15:34] LABS: T4, Free (Free Thyroxine) 1.53 ng/dL (0.800-1.800)
== END | disposition home or self-care (01) ==
LOC: LABWHC1 09:06
PROVIDERS: ATTEND Physician Assistant Medical
DX: E03.9 Hypothyroidism, unspecified (principal)
CPT/HCPCS: 36415; 80053; 83036; 84439; 84443; 84481; 85027

== ENCOUNTER → 2023-06-17 | Outpatient (CLI) | payer BC ==
[2023-06-18] LABS: HGB 14.7 d/dL (12.0-15.0); MCH 30.1 pg (27.0-32.0); MCHC 33.4 d/dL (32.0-37.0); MCV 90.2 FL (80.0-97.0); Mean Platelet Volume 10.7 FL (9.5-12.2); NRBC Per 100 WBC 0 X 10*3/uL (0.00-0.01); Platelet Count 298 X 10*3/uL (140-440); RBC 4.88 X 10*6/uL (4.10-5.20); RDW 12.3 % (11.5-14.5); WBC 7.43 X 10*3/uL (4.50-10.00)
[2023-06-18 07:56] LABS: ALT 24 U/L (8-44); AST 18 U/L (13-35); Albumin 4.8 d/dL (3.8-4.9); Albumin/Globulin Ratio 1.92 Ratio (1.60-3.17); Alkaline Phosphatase 50 U/L (41-126); BUN/Creat Ratio 16.12 Ratio (12.00-20.00); Blood Urea Nitrogen 12.9 mg/dL (9.0-27.0); Calcium 9.9 mg/dL (8.7-10.3); Chloride 101 mmol/L (96-109); Globulin 2.5 d/dL (1.6-3.3); Glucose 96 mg/dL (70-110); Potassium 4.3 mmol/L (3.5-5.5); Sodium 136 mmol/L (135-145); T4, Free (Free Thyroxine) 1.51 ng/dL (0.80-1.80); Total Bilirubin 0.4 mg/dL (0.3-1.2); Total Protein 7.3 d/dL (6.2-8.2)
== END | disposition home or self-care (01) ==
LOC: LABWHC1 10:18
PROVIDERS: ATTEND Family Medicine
DX: E03.9 Hypothyroidism, unspecified (principal); R73.01 Impaired fasting glucose
CPT/HCPCS: 36415; 80053; 83036; 84439; 84443; 84480; 85027